=== PATIENT | female | born 1975 | race Caucasian/White ===

== ENCOUNTER 2019-03-19 15:09 | Emergency (ER) | payer OTHER ==
[~2019-03-19] VITALS: Ht 170.2 cm; Wt 137.9 kg
[2019-03-19 15:10] VITALS: BP_SYST 152
--- NOTE | 2019-03-19 15:10 | NUR ---
Note undone in EDM - 03/19/19 at 1557 by SYDNEY Patient triaged and placed in waiting room. VSS and patient appears in no acute distress at this time. Accompanied by DAUGHTER, awaiting available bed, and MD notified of need for MSE.
[2019-03-19] MEDS ORDERED: KETOROLAC TROMETHAMINE 60 MG/2 ML VIAL IM ONE (15:45)
[2019-03-19] MEDS ORDERED: DIPHENHYDRAMINE INJ 50 MG/ML VIAL IM ONE (15:45)
[2019-03-19] MEDS ORDERED: MORPHINE 4 MG/ML INJ. SYRINGE IM ONE (15:45)
[2019-03-19 15:55] LABS: BASOPHILS # (AUTO) 0.1 K/uL (0.0-0.2); BASOPHILS % (AUTO) 0.5 % (0.0-2.0); EOSINOPHILS # (AUTO) 0.2 K/uL (0.0-0.4); EOSINOPHILS % (AUTO) 1.5 % (0.0-4.0); HEMATOCRIT 39.6 % (36-48); HEMOGLOBIN 12.9 g/dL (12.0-16.0); LYMPHOCYTES % (AUTO) 17.1 % (20.5-51.5); MEAN CORPUSCULAR HEMOGLOBIN 27 pg (27-31); MEAN CORPUSCULAR HGB CONC 33 % (32-36); MEAN CORPUSCULAR VOLUME 83 fL (79.0-98.0); MONOCYTES # (AUTO) 0.7 K/uL (0.0-1.0); NEUTROPHILS % (AUTO) 74.9 % (40.0-70.0); PLATELET COUNT (AUTO) 204 K/uL (130-430); RED BLOOD CELL COUNT(AUTO) 4.78 MIL/uL (4.2-6.2); RED CELL DISTRIBUTION WIDTH 16.1 % (9.0-15.0)
[2019-03-19 16:09] LABS: CALCIUM 9.2 mg/dL (8.4-11.0); CREATININE 0.7 mg/dL (0.55-1.30); POTASSIUM 4.1 mmol/L (3.5-5.1)
[2019-03-19 16:13] LABS: ALBUMIN 3.6 g/dL (3.4-4.8); TOTAL BILIRUBIN 0.3 mg/dL (0.0-1.0)
--- NOTE | 2019-03-19 16:45 | NUR ---
Shira LACKEY HOSE OPERATOR at bedside examining patient.
--- NOTE | 2019-03-19 16:45 | NUR ---
BROUGHT BACK TO BED #2 AND REPORT GIVEN TO PAMELA
[2019-03-19] MEDS ORDERED: DIPHENHYDRAMINE INJ 50 MG/ML VIAL IVP ONE (17:00)
[2019-03-19] MEDS ORDERED: MORPHINE 4 MG/ML INJ. SYRINGE IVP ONE (17:00)
[2019-03-19] MEDS ORDERED: cefTRIAXone 1 GM IVPB PREMIX 50 ML IV ONE (17:00)
[2019-03-19] MEDS ORDERED: NACL 0.9% 1,000 ML IV ONE (17:00)
[2019-03-19] MEDS ORDERED: KETOROLAC TROMETHAMINE 30 MG VIAL IVP ONE (17:00)
--- NOTE | 2019-03-19 17:05 | NUR ---
Patient presented to ER with C/o lower back pain. Patient A&Ox4, ambulatory to ER, afebrile, pain 7/10 to lower back with Nausea, patient denies V/D. Patient stated she has had lower back pain [id number]. Patient states health history includes uncomplecated pregancies, hysterectomy & gallbladder removed.
[2019-03-19 17:25] LABS: BILIRUBIN,URINE NEGATIVE (NEGATIVE); BLOOD, URINE TRACE (NEGATIVE); COLOR,URINE YELLOW (YELLOW); GLUCOSE,URINE NEGATIVE (NEGATIVE); KETONES,URINE NEGATIVE (NEGATIVE); LEUKOCYTE ESTERASE ,URINE 2+ (NEGATIVE); NITRITE, URINE NEGATIVE (NEGATIVE); PROTEIN URINE NEGATIVE (NEGATIVE); UROBILINOGEN,URINE 0.2 (0.2-1.0)
[2019-03-19 17:57] LABS: CLARITY/URINE CLOUDY (CLEAR)
[2019-03-19 18:05] LABS: BACTERIA,URINE MODERATE /HPF (None Seen); YEAST,URINE Moderate /HPF (None Seen)
[2019-03-19 18:06] LABS: MUCUS,URINE 1+ /LPF (None Seen); URINE AMORPHOUS URATE 2+ /HPF (None Seen)
[2019-03-19 19:10] VITALS: BP_SYST 119
--- NOTE | 2019-03-19 19:10 | NUR ---
Patient given written and verbal discharge instructions and verbalizes understanding. ER MD discussed with patient the results and treatment provided. Patient in stable condition. ID arm band removed. IV catheter removed intact and dressing applied, no active bleeding. Rx of Cipro, Motrin given. Patient educated on pain management and to follow up with PMD. Pain Scale 6/10 tolerable for pt. Opportunity for questions provided and answered. Medication side effect fact sheet provided.
== END 2019-03-19 19:10 | disposition home or self-care (01) ==
LOC: SED 15:09
DX: N20.0 Calculus of kidney (principal); N39.0 Urinary tract infection, site not specified; D72.829 Elevated white blood cell count, unspecified; M54.5 Low back pain; R03.0 Elevated blood-pressure reading, without diagnosis of hypertension; K21.9 Gastro-esophageal reflux disease without esophagitis; Z90.49 Acquired absence of other specified parts of digestive tract; Z90.710 Acquired absence of both cervix and uterus
CPT/HCPCS: 36415; 72131; 74176; 80053; 81000; 81025; 83690; 85025; 87040; 87086; 96365; 96375; 99284; J0696; J1200; J1885; J2270; J7030